=== PATIENT | male | born 1955 | race Hispanic/Latino ===

== ENCOUNTER 2021-01-18 06:30 | Day surgery (SDC) | payer OTHER, MEDICARE ==
[2021-01-18] MEDS ORDERED: Ringers Lactate 1,000 ML IV ONE (06:59)
[2021-01-18] MEDS ORDERED: propofoL 200 MG/20 ML VIAL IV ONE ×2 (07:22→08:42)
[2021-01-18] MEDS ORDERED: LIDOCAINE 1% MPF 5 ML VIAL ONE (07:23)
[2021-01-18] MEDS ORDERED: MIDAZOLAM HCL 2 MG/2 ML INJ ONE (08:42)
[2021-01-18] MEDS ORDERED: LIDOCAINE 1% MPF 30 ML VIAL ONE (13:29)
--- NOTE | 2021-01-18 13:37 | ENDO RPT ---
[address], [address] COLONOSCOPY PROCEDURE REPORT EXAM DATE: 01/18/2021 PATIENT NAME: Jason Javier MR #: [id number] BIRTHDATE: 1955 ATTENDING: Jase Miller MD STATUS: outpatient FRAMEWORK DEVELOPER: Timbo Edwards CST, Brianna Vicente RN, and Nayeli DUMONT INDICATIONS: The patient is a 65 yr old Male here for a colonoscopy due to colon cancer screening PROCEDURE PERFORMED: Colonoscopy MEDICATIONS: Per Anesthesia. ESTIMATED BLOOD LOSS: None CONSENT: The patient understands the risks and benefits of the procedure and understands that these risks include, but are not limited to: sedation, allergic reaction, infection, perforation and/or bleeding. Alternative means of evaluation and treatment include, among others: physical exam, x-rays, and/or surgical intervention. The patient elects to proceed with this endoscopic procedure. DESCRIPTION OF PROCEDURE: During intra-op preparation period all mechanical medical equipment was checked for proper function. Hand hygiene and appropriate measures for infection prevention was taken. Procedure, possible complications, alternatives including, but not limited to possibility of bleeding, perforation, tear, infection, sepsis, need for surgery, need for blood transfusion, were explained to the patient. After the risks, benefits and alternatives of the procedure were thoroughly explained, Informed consent was verified, confirmed and timeout was successfully executed by the treatment team. The patient was placed in the left lateral position. A digital rectal exam was performed and revealed external hemorrhoids. After appropriate level of anesthesia, the scope was passed. The EC-3890Li ([id number]) and EC-3890Li ([id number]) endoscope was introduced through the anus and advanced to the proximal ascending colon. The quality of the prep was poor. The instrument was then slowly withdrawn as the colon was fully examined. Scope withdrawal time was . COLON FINDINGS: Hemorrhoids were found. Retroflexed views revealed no abnormalities. The scope was then completely withdrawn from the patient and the procedure terminated. ADVERSE EVENTS: There were no complications. IMPRESSIONS: Hemorrhoids RECOMMENDATIONS: 1. follow-up: office 1 week(s) 2. barium enema RECALL: for Colonoscopy. depending on BE and/or Cologuard Jase Miller MD eSigned: Jase Miller MD 01/18/2021 1:37 PM cc: Jase Miller M.D. CPT CODES: ICD9 CODES: PATIENT NAME: Jason Javier MR#: [id number]
[2021-01-18 14:34] VITALS: TEMP 98; O2SAT 97
[2021-01-18 14:37] VITALS: BP 124/67
== END 2021-01-18 14:30 | disposition home or self-care (01) ==
LOC: OR 06:30
PROVIDERS: ATTEND Surgery
PROC: 0DJD8ZZ Inspection of Lower Intestinal Tract, Via Natural or Artificial Opening Endoscopic (ICD-10-PCS; principal; 2021-01-18 07:30)
DX: Z12.11 Encounter for screening for malignant neoplasm of colon (principal); I10 Essential (primary) hypertension; G47.30 Sleep apnea, unspecified; M19.90 Unspecified osteoarthritis, unspecified site; K64.4 Residual hemorrhoidal skin tags
CPT/HCPCS: J2704; J2250; J7120; G0121

== ENCOUNTER 2021-04-03 07:56 | Day surgery (SDC) | payer OTHER, MEDICARE ==
[2021-04-03] MEDS ORDERED: Ringers Lactate 1,000 ML IV ONE (08:32)
[2021-04-03] MEDS ORDERED: LIDOCAINE 1% MPF 5 ML VIAL ONE (09:17)
[2021-04-03] MEDS ORDERED: GLYCOPYRROLATE 0.2 MG/ML SYR ONE (09:17)
[2021-04-03] MEDS ORDERED: propofoL 200 MG/20 ML VIAL IV ONE ×2 (09:17)
--- NOTE | 2021-04-03 10:01 | ENDO RPT ---
[address], [address] COLONOSCOPY PROCEDURE REPORT EXAM DATE: 04/03/2021 PATIENT NAME: Jason Javier MR #: [id number] BIRTHDATE: 1955 ATTENDING: Jase Miller MD STATUS: outpatient GLUTEN SETTLING TENDER: Brianna Vicente RN and Kaur Beckett CST INDICATIONS: The patient is a 65 yr old Male here for a colonoscopy due to colon cancer screening and COLOGUARD POSITIVE PROCEDURE PERFORMED: Colonoscopy with biopsy - cold polypectomy MEDICATIONS: Per Anesthesia. ESTIMATED BLOOD LOSS: None CONSENT: The patient understands the risks and benefits of the procedure and understands that these risks include, but are not limited to: sedation, allergic reaction, infection, perforation and/or bleeding. Alternative means of evaluation and treatment include, among others: physical exam, x-rays, and/or surgical intervention. The patient elects to proceed with this endoscopic procedure. DESCRIPTION OF PROCEDURE: During intra-op preparation period all mechanical medical equipment was checked for proper function. Hand hygiene and appropriate measures for infection prevention was taken. Procedure, possible complications, alternatives including, but not limited to possibility of bleeding, perforation, tear, infection, sepsis, need for surgery, need for blood transfusion, were explained to the patient. After the risks, benefits and alternatives of the procedure were thoroughly explained, Informed consent was verified, confirmed and timeout was successfully executed by the treatment team. The patient was placed in the left lateral position. A digital rectal exam was performed and revealed external hemorrhoids. After appropriate level of anesthesia, the scope was passed. The EC-3890Li ([id number]) endoscope was introduced through the anus and advanced to the cecum, which was identified by transillumination from the light source, the appendix, and the ileocecal valve. The quality of the prep was fair. The instrument was then slowly withdrawn as the colon was fully examined. Scope withdrawal time was . COLON FINDINGS: A smooth sessile polyp ranging between 3-5mm in size was found in the descending colon. A polypectomy was performed using hot forceps. The resection was complete, the polyp tissue was completely retrieved and sent to histology. Retroflexed views revealed no abnormalities and Retroflexed views revealed medium hemorrhoids. The scope was then completely withdrawn from the patient and the procedure terminated. ADVERSE EVENTS: There were no complications. IMPRESSIONS: 1. Sessile polyp ranging between 3-5mm in size was found in the descending colon; polypectomy was performed in a piecemeal fashion using hot forceps 2. COLOGUARD positive RECOMMENDATIONS: 1. follow-up: office 1 week(s) 2. await biopsy results 3. weight loss RECALL: for Colonoscopy, pending biopsy results. Jase Miller MD eSigned: Jase Miller MD 04/03/2021 10:00 AM cc: Arvin Suh M.D. CPT CODES: ICD9 CODES: PATIENT NAME: Jason Javier MR#: [id number]
[2021-04-03 10:50] VITALS: BP 109/62; TEMP 97; O2SAT 99
== END 2021-04-03 10:40 | disposition home or self-care (01) ==
LOC: OR 07:56
PROVIDERS: ATTEND Surgery
PROC: 0DBP8ZX Excision of Rectum, Via Natural or Artificial Opening Endoscopic, Diagnostic (ICD-10-PCS; principal; 2021-04-03 09:15)
DX: K63.5 Polyp of colon (principal); I10 Essential (primary) hypertension; Z20.822 Contact with and (suspected) exposure to COVID-19
CPT/HCPCS: 88305; 45384; U0003; J2704 ×2; J7120

== ENCOUNTER 2024-08-19 06:07 | Day surgery (SDC) | payer OTHER, MEDICARE ==
[2024-08-18 16:14] LABS: Absolute Lymphocytes (CBC) 0.8 K/uL (0.7-4.9); Absolute Monocytes 1.1 K/uL (0.1-1.3); Absolute Neutrophil 9.6 K/uL (1.8-8.0); Basophils % 0.1 % (0-1.3); Eosinophils % 0.3 % (0-4.4); Hematocrit 49.3 % (39.6-49.0); Hemoglobin 16.5 g/dL (13.6-17.9); Lymphocytes % 7.3 % (15.3-44.8); MCH 29.6 pg (27.0-35.0); MCHC 33.5 g/dL (32.0-36.0); MCV 88.4 fL (80-100); MPV 6.5 fL (7.6-11.3); Monocytes % 9.2 % (3.3-12.3); Neutrophils % 83.1 % (41.7-73.7); Nucleated RBC Absolute Count 0.1 (0-0); Nucleated Red Blood Cells % 0.4 % (0-0); Platelets 182 thou/uL (152-406); RBC Red Blood Cell Count 5.58 M/uL (4.33-5.43); Red Cell Distribution Width 15.3 % (12.1-15.2)
[2024-08-18 16:39] LABS: Anion Gap 6.2 mEq/L (5.0-15.0); Potassium 4.2 mEq/L (3.5-5.1)
[2024-08-19] MEDS ORDERED: LIDOCAINE 1% MPF 5 ML VIAL ONE (06:51)
[2024-08-19] MEDS ORDERED: propofoL 200 MG/20 ML VIAL IV ONE (06:51)
[2024-08-19] MEDS: Ringers Lactate 1,000 ML IV ONE (07:10)
[2024-08-19 09:09] VITALS: BP 133/54; O2SAT 99
[2024-08-19 09:10] VITALS: TEMP 97.6
--- NOTE | 2024-08-19 12:30 | EKG ---
Test Date: 2024-08-18 Test Time: 15:54:42 Flange Machine Operator: BREANN MEASUREMENT RESULTS: Intervals: Rate: 58 OR: 210 QRSD: 76 QT: 420 QTc: 412 [place]: P: 20 OR: 210 QRS: 19 T: 37 INTERPRETIVE STATEMENTS: Sinus bradycardia with 1st degree AV block Low voltage QRS Borderline ECG Compared to ECG 08/28/2012 23:00:06 Low QRS voltage now present Sinus rhythm no longer present Electronically Signed On 08-19-24 12:28:49 SENIOR PRODUCTION MANAGER by Sam Scherer
== END 2024-08-19 09:15 | disposition home or self-care (01) ==
LOC: OR 06:07
PROVIDERS: ATTEND Surgery
PROC: 0DJD8ZZ Inspection of Lower Intestinal Tract, Via Natural or Artificial Opening Endoscopic (ICD-10-PCS; principal; 2024-08-19 07:30)
DX: R10.9 Unspecified abdominal pain (principal); K64.4 Residual hemorrhoidal skin tags; K64.8 Other hemorrhoids; C67.9 Malignant neoplasm of bladder, unspecified; Z86.0100 Personal history of colon polyps, unspecified
CPT/HCPCS: 45378; 93005; 85025; 80048; 36415; J2704; J2003; J7120